=== PATIENT | female | born 1990 | race African-American/Black ===

== ENCOUNTER 2017-03-08 10:09 | Emergency (ER) | payer BC ==
[~2017-03-08] VITALS: Ht 165.1 cm; Wt 61.2 kg
[~2017-03-08 10:09] MED LIST: CIPROFLOXACIN500 M1 PO; DIFLUCAN150 MG PO; IRON325 PO; KEFLEX500 M1 PO; METFORMIN HCL500 MG PO; NORCO 5-325 TA1 EACH PO; PYRIDIUM200 MG PO; TRAMADOL 50 MG50 MG PO; TRINATE TABLET1 TAB PO; ZANTAC 150MG T150 MG PO; ZOFRAN ODT4 MG PO
[2017-03-08 10:15] VITALS: BP 108/74
[2017-03-08 10:26] LABS: URINE BILIRUBIN NEGATIVE (Negative); URINE BLOOD 1+ (Negative); URINE COLOR YELLOW; URINE GLUCOSE-RANDOM* NEGATIVE (Negative); URINE KETONES NEGATIVE (Negative); URINE NITRITE POSITIVE (Negative); URINE PROTEIN (DIPSTICK) NEGATIVE (Negative); URINE UROBILINOGEN 0.2 E.U./dl (0.2-1.0)
[2017-03-08] MEDS ORDERED: KEFLEX500 MG PO (10:32)
[2017-03-08 10:54] LABS: CASTS None Seen /LPF (None Seen); SQUAMOUS >10 Many /LPF (0-3)
[2017-03-08 10:55] LABS: BACTERIA >30 Many /HPF (None Seen); CRYSTALS None Seen /LPF (None Seen); URINE RBC 3-10 Few /HPF (0-2)
== END 2017-03-08 11:00 | disposition home or self-care (01) ==
LOC: ER 10:09
PROVIDERS: Nurse Practitioner
DX: N39.0 Urinary tract infection, site not specified (principal)